=== PATIENT | male | born 1960 | race Caucasian/White ===

== ENCOUNTER 2019-07-17 03:46 | Observation (INO) ==
--- NOTE | 2019-07-17 04:04 | ERNOTE ---
Abdominal HPI - General Chief Complaint: Abdominal Pain Time Seen by Provider: 07/17/19 03:51 Source: patient Exam Limitations: no limitations - Immun/Allergies/Home Medications Immunizatons: IMMUNIZATION HX Immunizations Up to Date Yes History of Influenza Vaccine Yes Hx Pneumococcal Vaccination No Allergies/Adverse Reactions: Allergies rosiglitazone maleate [From Avandia] Allergy (Severe, Verified 07/17/19 03:55) EDEMA/PAIN fluvoxamine maleate [From Luvox] Adverse Reaction (Mild, Verified 07/17/19 03:55) sleepiness Home Medications: HOME MEDICATIONS Budesonide/Formoterol Fumarate [Symbicort 80-4.5 Mcg Inhaler] 2 puff IH BID 05/26/14 [Last Taken 06/11/14] Ranitidine HCl [Zantac] 150 mg PO BID 05/26/14 [Last Taken 06/11/14] metFORMIN HCL [Glucophage] 1,000 mg PO BIDWM 05/26/14 [Last Taken 06/11/14] blood sugar diagnostic See Dose Instructions .ROUTE .MEDSUPPLY #20 ea 12/11/17 [Last Taken Unknown] albuterol sulfate 90 mcg/actuation aerosol inhaler 1 puff IH Q4H PRN g 12/12/17 [Last Taken Unknown] gabapentin 600 mg tablet 600 mg PO TID #90 tab 01/22/18 [Last Taken Unknown] lamotrigine 150 mg tablet 150 mg PO DAILY #90 tab 01/22/18 [Last Taken Unknown] propranolol 20 mg tablet 20 mg PO Q8H PRN #90 tab 01/22/18 [Last Taken Unknown] simvastatin 40 mg tablet 40 mg PO DAILY #90 tab 01/22/18 [Last Taken Unknown] ibuprofen 600 mg tablet 600 mg PO Q8H PRN #90 tab 06/27/18 [Last Taken Unknown] Losartan Potassium [Cozaar] 50 mg PO BID 12/31/18 [Last Taken Unknown] - History of Present Illness Narrative: EMS went out to a lift assist with apparently no injuries. Upon arrival patient stated he was weak and having abdominal pain and was brought to the ED. Patient states he has been having increasing abdominal pain especially when he tries to eat over the past few days. He states mostly he is been sipping on water and has had dark stools. He has history of gastric ulcer. Timing: getting worse Quality: moderate, sharpness Modifying Factors - (Worsens): Present: eating Associated Symptoms: Present: fatigue Review of Systems - Review of Systems Constitutional: Present: weakness, fatigue. Absent: recent illness, fever, chills ENT: Absent: nose congestion, nasal drainage Respiratory: Absent: shortness of breath, cough Cardiology: Present: palpitations. Absent: chest pain Gastrointestinal/Abdominal: Present: See HPI, abdominal pain, eating less, drinking less. Absent: vomiting Genitourinary: Present: frequency, decreased urinary output Musculoskeletal: Absent: back pain, muscle pain Skin: Absent: rash, change in color Neurological: Present: dizziness/light-headedness. 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 Measles Mumps Surgical History: Surgical History (Last Reviewed 07/17/19 @ 04:00 by Clement Felix DO) H/O cardiac catheterization Onset Date: ~2011 H/O inguinal hernia repair bilateral H/O vasectomy Onset Date: 11/21/04 aher History of arthroscopic knee surgery Onset Date: 01/15/12 Nicko-chondroplasty of MFC and LTP exc of plica History of excision of pilonidal cyst Onset Date: 06/12/14 Family History: Family History (Last Reviewed 07/17/19 @ 04:00 by Clement Felix DO) Brother Alive and well Sister Alive and well Sister Rheumatoid arthritis Father , age 73-[place] Myocardial infarction Mother , age 63-[place] Diabetes Brother , age 55 Cancer Social History: (Last Reviewed 07/17/19 @ 04:00 by Clement Felix DO) Social History: Marital status: household members: spouse current occupational status: disabled Highest education level completed: GED or equivalent Service: No Tobacco: Smoking Status: Current some day smoker Smoking cigarettes per day: 5 how long ago did patient quit smoking: quit at age 51. 2 ppd Alcohol: alcohol intake: former Substance Use: substance use type: does not use Dietary Habits: caffeine: Yes Physical Exam - Physical Exam General Appearance: Present: wd/wn, alert, no apparent distress Head Exam: Present: normal inspection, no evidence of injury Eye Exam: Normal inspection: bilateral, PERRL: bilateral, EOMI: bilateral Neck: Present: normal inspection, nontender Respiratory: Present: no respiratory distress, no accessory muscle use, chest nontender, lungs clear Cardiovascular/Chest: Present: regular rate, rhythm, no murmur Gastrointestinal/Abdominal: Present: normal bowel sounds, nondistended, soft, tenderness - periumbilical and left abdomen Extremity Exam: Present: normal inspection, normal range of motion, no edema Neurological Exam: Present: alert, oriented, normal mood/affect, no motor/sensory deficits Skin Exam: Present: normal color, warm/dry Lymphatic Exam: Present: no adenopathy Progress - Results and Orders Patient's Lab Results:: I have reviewed the patient's lab results. Results and Orders: Laboratory Tests 07/17/19 07/17/19 07/17/19 04:15 04:15 04:15 WBC 9.2 Hgb 3.6 L* D Hct 11.1 L* D Plt Count 293 Sodium 139 Potassium 3.5 Chloride 102 Carbon Dioxide 31.1 Anion Gap 9.4 BUN 93 H D Creatinine 3.06 H D Random Glucose 124 H Lactic Acid, Venous 0.6 Calcium Adj for Albumin 12.6 H Phosphorus Total Bilirubin 0.4 AST 13 ALT 10 L Alkaline Phosphatase 44 L Total Protein 5.9 L Albumin 2.6 L Amylase 55 Lipase 181 Urine Color Urine Appearance Urine pH Ur Specific [place] Urine Ketones Urine Blood Urine Nitrate Ur Leukocyte Esterase Urine Bacteria 07/17/19 07/17/19 04:15 04:45 WBC Hgb Hct Plt Count Sodium Potassium Chloride Carbon Dioxide Anion Gap BUN Creatinine Random Glucose Lactic Acid, Venous Calcium Adj for Albumin Phosphorus 3.3 Total Bilirubin AST ALT Alkaline Phosphatase Total Protein Albumin Amylase Lipase Urine Color Pale yellow Urine Appearance Clear Urine pH 6.0 Ur Specific [place] 1.010 Urine Ketones Negative Urine Blood 5 H Urine Nitrate Negative Ur Leukocyte Esterase Negative Urine Bacteria Trace - Vital Signs Patient's Vital Signs:: I have reviewed the patient's vital signs. Vital Signs: Vital Signs 07/17/19 03:52 Temperature 36.4 C Pulse Rate 99 Respiratory Rate 19 Blood Pressure 152/81 H O2 Sat by Pulse Oximetry 99 - EKG EKG #1 EKG: atrial fibrillation, no ST T wave changes EKG read: Interp. by me - X-Ray X-Ray #1 X-Ray: abdomen Interpretation: Reviewed by me X-ray Comments: MPRESSION: NO FECAL RETENTION WITHOUT EVIDENCE FOR OBSTRUCTION. Electronically signed by Rigoberto Juarez D.O - CT/Ultrasound CT/Ultrasound Narrative: CT abdomen/ pelvis with oral contrast only IMPRESSION: 1. NO NEPHROLITHIASIS OR HYDRONEPHROSIS. 2. NO EVIDENCE FOR OBSTRUCTION. NORMAL SMALL BOWEL AND COLON. 3. REMAINDER OF EXAM IS SUBOPTIMAL WITHOUT IV CONTRAST. Electronically signed by Rigoberto Juarez D.O.. - Progress/Reassessment Progress:: Improved Progress Note-Subjective: 07/17/19 05:27 I asked patient about calcium intake such as Tums etc. he said he does take them once in a while. I asked him about milk intake and he states "I have been just living on it for a while". 07/17/19 07:[address] Kaminski and she agrees with admission and continued blood transfusion. Departure Clinical Impression: GI bleed, Anemia due to gastrointestinal blood loss, Hypercalcemia Atrial fibrillation Qualifiers: Atrial fibrillation type: unspecified Qualified Code(s): I48.91 - Unspecified atrial fibrillation - Departure Disposition: Still a patient Condition: Stable Referrals: Jitendra Mcpherson MD [Primary Care Provider] -
[2019-07-17 04:18] LABS: Mean Cell Volume 84.1 fl (78-100); Mean Corpuscular Hemoglobin 27.3 pg (27-31); Mean Corpuscular Hgb Conc 32.4 g/dl (32-36); Mean Platelet Volume 8.2 fl (8-11.3); Neutrophil % 87.2 % (42-75.0); Platelet Count 293 K/mm3 (150-450); Red Blood Count 1.32 M/mm3 (4.7-6.0); Red Cell Distribution Width 17.1 % (11.5-14.0); White Blood Count 9.2 K/mm3 (4.0-10.5)
[2019-07-17] MEDS ORDERED: diphenhydrAMINE HCL 50 MG/ML VIAL IV ONE ×2 (04:25→06:04)
[2019-07-17] MEDS ORDERED: ACETAMINOPHEN 500 MG TABLET PO ONE ×2 (04:25→06:04)
[2019-07-17 04:32] LABS: Albumin * 2.6 gm/dl (3.4-5.0); Anion Gap 9.4 mmol/L (6.8-13.8); BUN/Creatinine Ratio 30.4 (9.0-21.6); Bilirubin, Total 0.4 mg/dL (0.0-1.1); Ca. Corrected For Albumin 12.6 mg/dL (8.4-10.2); Calcium * 11.8 mg/dL (7.9-10.9); Carbon Dioxide 31.1 mmol/L (24-32.6); Potassium 3.5 mmol/L (3.4-4.6); Total Protein 5.9 gm/dL (6.2-8.2)
[2019-07-17 04:34] LABS: Hematocrit 11.1 % (42.0-52.0); Hemoglobin 3.6 gm/dL (13.5-18.0)
[2019-07-17] MEDS ORDERED: DIATRIZOATE MEGLUMINE, SODIUM 30 ML BTL PO ONE ×2 (04:46→04:58)
[2019-07-17 04:50] LABS: Urine Bilirubin Negative (NEGATIVE); Urine Ketone Negative (NEGATIVE); Urine Nitrite Negative (NEGATIVE); Urine Protein Negative (NEGATIVE); Urine Urobilinogen Normal (NORMAL)
[2019-07-17 04:58] LABS: Urine Appearance Clear (CLEAR); Urine Bacteria TRACE; Urine Blood 5 /ul (NEGATIVE); Urine Color Pale Yellow; Urine Hyaline Cast 0-5 /LPF; Urine RBC None Seen /hpf (0-5); Urine WBC 0-5 /hpf (0-5)
[2019-07-17] MEDS ORDERED: ONDANSETRON HCL/PF 2 MG/ML VIAL IV ONE (05:05)
[2019-07-17] MEDS ORDERED: ONDANSETRON HCL/PF 2 MG/ML VIAL ONE (05:05)
[2019-07-17] MEDS ORDERED: PANTOPRAZOLE SODIUM 80 MG in NORMAL SALINE 100 ML IV ONE (08:05)
--- NOTE | 2019-07-17 10:55 | HP ---
Chief Complaint - Chief Complaint Date of Service: 07/17/19 Time of Service: 10:07 Chief Complaint: Weakness for several months, progressively worsening History of Present Illness: 59-year-old male with a past medical history of hypertension, diabetes, COPD, depression, bipolar affective disorder, history of upper GI bleed presents from home with complaints of weakness for the past several weeks. He states his symptoms have been progressively worsening. In February 2019 he developed an upper GI ulcer, his hemoglobin dropped to 5.4 and he was admitted to [facility]. He states he had an endoscopy and Dr. Meadows fixed the problem. He states within the past 1 to 2 months he was found to have another ulcer that was not fixed. He was scheduled to have another endoscopy in June but it was postponed due to the coronavirus pandemic. He notes black sticky stools for the past several weeks. Last night he fell and had difficulty getting himself up due to weakness and therefore called EMS. He was brought to the emergency room and was found to have a hemoglobin of 3.6, hematocrit 11.1, BUN 93, creatinine 3.06, GFR of 22, CT abdomen pelvis without IV contrast was suboptimal but showed no nephrolithiasis or hydronephrosis, no evidence for obstruction, normal small bowel and colon. He is being admitted for GI bleed, symptomatic anemia and acute kidney injury. 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 Measles Mumps Surgical History: Surgical History (Last Updated 07/17/19 @ 08:59 by Debora Curran RN) History of esophagogastroduodenoscopy (EGD) H/O cardiac catheterization Onset Date: ~2011 H/O inguinal hernia repair bilateral H/O vasectomy Onset Date: 11/21/04 aher History of arthroscopic knee surgery Onset Date: 01/15/12 Nicko-chondroplasty of MFC and LTP exc of plica History of excision of pilonidal cyst Onset Date: 06/12/14 Family History: Family History (Last Reviewed 07/17/19 @ 08:59 by Debora Curran RN) Brother Alive and well Sister Alive and well Sister Rheumatoid arthritis Father , age 73-[place] Myocardial infarction Mother , age 63-[place] Diabetes Brother , age 55 Cancer Social History: (Last Updated 07/17/19 @ 09:01 by Debora Curran RN) Social History: Marital status: Marital status comment: single, left him lives independently: Yes household members: none current occupational status: employed, disabled Highest education level completed: GED or equivalent Service: No Tobacco: Smoking Status: Current some day smoker Smoking cigarettes per day: 5 how long ago did patient quit smoking: quit at age 51. 2 ppd Alcohol: alcohol intake: former Substance Use: substance use type: does not use Dietary Habits: caffeine: Yes Review Of Systems (GEN) - Review of Systems Generalized/Overall Review: Present: Weakness. Absent: Fever Respiratory: Absent: Shortness of Breath Cardiac: Absent: Chest Pain Abdominal: Present: Abdominal Pain - Epigastric, Other - Black sticky stools Misc: All systems neg except as marked Immunizations: IMMUNIZATION HX Immunizations Up to Date Yes History of Influenza Vaccine Yes Hx Pneumococcal Vaccination No Allergies/Adverse Reactions: Allergies Allergy/AdvReac Type Severity Reaction Status Date / Time rosiglitazone maleate Allergy Severe EDEMA/PAIN Verified 07/17/19 03:55 [From Avandia] fluvoxamine maleate AdvReac Mild sleepiness Verified 07/17/19 03:55 [From Luvox] Home Medications: HOME MEDICATIONS Budesonide/Formoterol Fumarate [Symbicort 80-4.5 Mcg Inhaler] 2 puff IH BID 05/26/14 [Last Taken 06/11/14] Ranitidine HCl [Zantac] 150 mg PO BID 05/26/14 [Last Taken 06/11/14] metFORMIN HCL [Glucophage] 1,000 mg PO BIDWM 05/26/14 [Last Taken 06/11/14] blood sugar diagnostic See Dose Instructions .ROUTE .MEDSUPPLY #20 ea 12/11/17 [Last Taken Unknown] albuterol sulfate 90 mcg/actuation aerosol inhaler 1 puff IH Q4H PRN g 12/12/17 [Last Taken Unknown] gabapentin 600 mg tablet 600 mg PO TID #90 tab 01/22/18 [Last Taken Unknown] lamotrigine 150 mg tablet 150 mg PO DAILY #90 tab 01/22/18 [Last Taken Unknown] propranolol 20 mg tablet 20 mg PO Q8H PRN #90 tab 01/22/18 [Last Taken Unknown] simvastatin 40 mg tablet 40 mg PO DAILY #90 tab 01/22/18 [Last Taken Unknown] ibuprofen 600 mg tablet 600 mg PO Q8H PRN #90 tab 06/27/18 [Last Taken Unknown] Losartan Potassium [Cozaar] 50 mg PO BID 12/31/18 [Last Taken Unknown] Exam - Exam Vital Signs: Vital Signs - Last Taken Temp 36.8 C 07/17/19 09:41 Pulse 91 07/17/19 09:41 Resp 16 07/17/19 09:41 BP 145/82 H 07/17/19 09:41 Pulse Ox 99 07/17/19 09:41 Constitutional: Present: Alert, Cooperative, Well developed, Well nourished, No distress, Middle aged ENT Exam: Present: hearing grossly normal Eye Exam: bilateral eye: normal inspection, PERRL, EOMI, conjunctivae pale Neck: Present: non-tender, supple. Absent: lymphadenopathy (R), lymphadenopathy (L) Back Exam: Present: normal inspection, no CVA tenderness, no vertebral tenderness Respiratory: Present: lungs clear, no accessory muscle use, No wheezing. Absent: crackles, rhonchi Cardiovascular/Chest: Present: normal peripheral pulses, regular rate, rhythm, no edema, no murmur Peripheral Pulses: dorsalis-pedis (R): 1+, dorsalis-pedis (L): 1+ Abdomen: Present: Normal bowel sounds, soft, tender - Epigastric Extremity: Present: no pedal edema Skin Exam: Present: warm/dry, pallor Neurologic: Present: alert, normal mood/affect Appearance: Present: appropriate appearance, appropriate insight Eye contact: Present: cooperative Thoughts: Present: normal mood /affect Diagnostic Studies: Abnormal Lab Results 07/17/19 07/17/19 07/17/19 Range/Units 04:15 04:15 04:15 RBC 1.32 L (4.7-6.0) M/mm3 Hgb 3.6 L* D (13.5-18.0) gm/dL Hct 11.1 L* D (42.0-52.0) % RDW 17.1 H (11.5-14.0) % Immature Gran % (Auto) 0.50 H (0.001-0.429) % Immature Gran # (Auto) 0.05 H (0.000-0.0310) K/mm3 Neutrophils % 87.2 H (42-75.0) % Lymphocytes % 8.8 L (20-51) % Neutrophils # 8.0 H (1.3-6.0) K/mm3 Lymphocytes # 0.81 L (1.5-3.5) k/mm3 BUN 93 H D (6-23) mg/dL Creatinine 3.06 H D (0.4-1.4) mg/dL Est GFR (Non-Af Amer) 22 L D (60-130) mL/min BUN/Creatinine Ratio 30.4 H (9.0-21.6) Random Glucose 124 H (70-110) mg/dL Calcium 11.8 H (7.9-10.9) mg/dL Calcium Adj for Albumin 12.6 H (8.4-10.2) mg/dL ALT 10 L (19-67) U/L Alkaline Phosphatase 44 L (50-170) U/L Total Protein 5.9 L (6.2-8.2) gm/dL Albumin 2.6 L (3.4-5.0) gm/dl Urine Blood (NEGATIVE) /ul Hyaline Casts (NONE) /LPF Crossmatch See Detail 07/17/19 Range/Units 04:45 RBC (4.7-6.0) M/mm3 Hgb (13.5-18.0) gm/dL Hct (42.0-52.0) % RDW (11.5-14.0) % Immature Gran % (Auto) (0.001-0.429) % Immature Gran # (Auto) (0.000-0.0310) K/mm3 Neutrophils % (42-75.0) % Lymphocytes % (20-51) % Neutrophils # (1.3-6.0) K/mm3 Lymphocytes # (1.5-3.5) k/mm3 BUN (6-23) mg/dL Creatinine (0.4-1.4) mg/dL Est GFR (Non-Af Amer) (60-130) mL/min BUN/Creatinine Ratio (9.0-21.6) Random Glucose (70-110) mg/dL Calcium (7.9-10.9) mg/dL Calcium Adj for Albumin (8.4-10.2) mg/dL ALT (19-67) U/L Alkaline Phosphatase (50-170) U/L Total Protein (6.2-8.2) gm/dL Albumin (3.4-5.0) gm/dl Urine Blood 5 H (NEGATIVE) /ul Hyaline Casts 0-5 H (NONE) /LPF Crossmatch Laboratory Results WBC 9.2 K/mm3 (4.0-10.5) 07/17/19 04:15 RBC 1.32 M/mm3 (4.7-6.0) L 07/17/19 04:15 Hgb 3.6 gm/dL (13.5-18.0) L* D 07/17/19 04:15 Hct 11.1 % (42.0-52.0) L* D 07/17/19 04:15 MCV 84.1 fl (78-100) 07/17/19 04:15 MCH 27.3 pg (27-31) 07/17/19 04:15 MCHC 32.4 g/dl (32-36) 07/17/19 04:15 RDW 17.1 % (11.5-14.0) H 07/17/19 04:15 Plt Count 293 K/mm3 (150-450) 07/17/19 04:15 MPV 8.2 fl (8-11.3) 07/17/19 04:15 Immature Gran % (Auto) 0.50 % (0.001-0.429) H 07/17/19 04:15 Immature Gran # (Auto) 0.05 K/mm3 (0.000-0.0310) H 07/17/19 04:15 Neutrophils % 87.2 % (42-75.0) H 07/17/19 04:15 Lymphocytes % 8.8 % (20-51) L 07/17/19 04:15 Monocytes % 3.1 % (0.0-9) 07/17/19 04:15 Eosinophils % 0.2 % (0.0-3.0) 07/17/19 04:15 Basophils % 0.2 % (0.0-1.0) 07/17/19 04:15 Nucleated RBC % 0.0 k/mm3 (0-1) 07/17/19 04:15 Neutrophils # 8.0 K/mm3 (1.3-6.0) H 07/17/19 04:15 Lymphocytes # 0.81 k/mm3 (1.5-3.5) L 07/17/19 04:15 Monocytes # 0.3 k/mm3 (0.0-1.0) 07/17/19 04:15 Eosinophils # 0.0 k/mm3 (0.0-0.7) 07/17/19 04:15 Absolute Basophils 0.0 k/mm3 (0.0-0.1) 07/17/19 04:15 Sodium 139 mmol/L (132-142) 07/17/19 04:15 Plasma Sodium 139 mmol/L (130-142) 07/17/19 04:15 Potassium 3.5 mmol/L (3.4-4.6) 07/17/19 04:15 Chloride 102 mmol/L (97-106) 07/17/19 04:15 Carbon Dioxide 31.1 mmol/L (24-32.6) 07/17/19 04:15 Anion Gap 9.4 mmol/L (6.8-13.8) 07/17/19 04:15 BUN 93 mg/dL (6-23) H D 07/17/19 04:15 Creatinine 3.06 mg/dL (0.4-1.4) H D 07/17/19 04:15 Est GFR (Non-Af Amer) 22 mL/min (60-130) L D 07/17/19 04:15 BUN/Creatinine Ratio 30.4 (9.0-21.6) H 07/17/19 04:15 Random Glucose 124 mg/dL (70-110) H 07/17/19 04:15 Lactic Acid, Venous 0.6 mmol/L (0.4-2.0) 07/17/19 04:15 Calcium 11.8 mg/dL (7.9-10.9) H 07/17/19 04:15 Calcium Adj for Albumin 12.6 mg/dL (8.4-10.2) H 07/17/19 04:15 Phosphorus 3.3 mg/dL (2.2-4.2) 07/17/19 04:15 Total Bilirubin 0.4 mg/dL (0.0-1.1) 07/17/19 04:15 AST 13 U/L (0-48) 07/17/19 04:15 ALT 10 U/L (19-67) L 07/17/19 04:15 Alkaline Phosphatase 44 U/L (50-170) L 07/17/19 04:15 Total Protein 5.9 gm/dL (6.2-8.2) L 07/17/19 04:15 Albumin 2.6 gm/dl (3.4-5.0) L 07/17/19 04:15 Amylase 55 U/L (25-115) 07/17/19 04:15 Lipase 181 U/L (73-393) 07/17/19 04:15 Urine Color Pale yellow 07/17/19 04:45 Urine Appearance Clear (CLEAR) 07/17/19 04:45 Urine pH 6.0 pH (5.0-7.0) 07/17/19 04:45 Ur Specific [place] 1.010 SP.GR. (1.005-1.030) 07/17/19 04:45 Urine Protein Negative mg/dL (NEGATIVE) 07/17/19 04:45 Urine Glucose (UA) Negative mg/dL (NEGATIVE) 07/17/19 04:45 Urine Ketones Negative mg/dL (NEGATIVE) 07/17/19 04:45 Urine Blood 5 /ul (NEGATIVE) H 07/17/19 04:45 Urine Nitrate Negative (NEGATIVE) 07/17/19 04:45 Urine Bilirubin Negative mg/dl (NEGATIVE) 07/17/19 04:45 Urine Urobilinogen Normal EU/dl (NORMAL) 07/17/19 04:45 Ur Leukocyte Esterase Negative /ul (NEGATIVE) 07/17/19 04:45 Urine RBC None seen /hpf (0-5) 07/17/19 04:45 Urine WBC 0-5 /hpf (0-5) 07/17/19 04:45 Ur Epithelial Cells None seen /hpf (0-5) 07/17/19 04:45 Urine Bacteria Trace (NONE) 07/17/19 04:45 Hyaline Casts 0-5 /LPF (NONE) H 07/17/19 04:45 Urine Culture Comments No culture indicated 07/17/19 04:45 Blood Type A Positive 07/17/19 04:15 Antibody Screen Negative 07/17/19 04:15 Crossmatch See Detail 07/17/19 04:15 Assessment/Plan - Narrative Narrative: 59-year-old male with a past medical history of hypertension, diabetes, COPD, depression, bipolar affective disorder, history of upper GI bleed presents from home with complaints of weakness for the past several weeks. He states his symptoms have been progressively worsening. In February 2019 he developed an upper GI ulcer, his hemoglobin dropped to 5.4 and he was admitted to [facility]. He states he had an endoscopy and Dr. Meadows fixed the problem. He states within the past 1 to 2 months he was found to have another ulcer that was not fixed. He was scheduled to have another endoscopy in June but it was postponed due to the coronavirus pandemic. He notes black sticky sto ols for the past several weeks. Last night he fell and had difficulty getting himself up due to weakness and therefore called EMS. He was brought to the emergency room and was found to have a hemoglobin of 3.6, hematocrit 11.1, BUN 93, creatinine 3.06, GFR of 22, CT abdomen pelvis without IV contrast was suboptimal but showed no nephrolithiasis or hydronephrosis, no evidence for obstruction, normal small bowel and colon. He was admitted for GI bleed, symptomatic anemia and acute kidney injury. The patient states he does not want our general surgeons to scope him and would prefer that Dr. Meadows does the procedure because he already has a relationship with the patient. I have put out a consult to Dr. Meadows to determine if he would like the patient transferred to [facility] or just stabilized and have him follow-up as an outpatient. Plan #1 continue with IV Protonix drip #2 he will receive 3 units of packed red blood cells #3 Repeat CBC 1 hour status post transfusion #4. Monitor vitals closely #[address] Lerma general surgery at [facility] - Assessment/Plan (1) Symptomatic anemia Problem: Acute (2) Acute kidney injury Problem: Acute (3) GI bleed Problem: Acute Qualifiers: GI bleed type/associated pathology: unspecified gastrointestinal hemorrhage type Qualified Code(s): K92.2 - Gastrointestinal hemorrhage, unspecified (4) Anemia due to gastrointestinal blood loss Problem: Acute (5) Hypercalcemia Problem: Acute (6) COPD (chronic obstructive pulmonary disease) Problem: Chronic (7) Diabetes mellitus type 2 in nonobese Problem: Chronic (8) Hyperlipidemia Problem: Chronic (9) Hypertension Problem: Chronic Qualifiers: Hypertension type: essential hypertension Qualified Code(s): I10 - Essential (primary) hypertension
--- NOTE | 2019-07-17 11:50 | DS ---
Transfer Discharge Summary - Diagnosis(s)/Problems (1) Symptomatic anemia Problem: Acute (2) Acute kidney injury Problem: Acute (3) GI bleed Problem: Acute (4) Anemia due to gastrointestinal blood loss Problem: Acute (5) Hypercalcemia Problem: Acute (6) COPD (chronic obstructive pulmonary disease) Problem: Chronic (7) Diabetes mellitus type 2 in nonobese Problem: Chronic (8) Hyperlipidemia Problem: Chronic (9) Hypertension Problem: Chronic - Course Description of Stay: 59-year-old male with a past medical history of hypertension, diabetes, COPD, depression, bipolar affective disorder, history of upper GI bleed presents from home with complaints of weakness for the past several weeks. He states his symptoms have been progressively worsening. In February 2019 he developed an upper GI ulcer, his hemoglobin dropped to 5.4 and he was admitted to [facility]. He states he had an endoscopy and Dr. Meadows fixed the problem. He states within the past 1 to 2 months he was found to have another ulcer that was not fixed. He was scheduled to have another endoscopy in June but it was postponed due to the coronavirus pandemic. He notes black sticky stools for the past several weeks. Last night he fell and had difficulty getting himself up due to weakness and therefore called EMS. He was brought to the emergency room and was found to have a hemoglobin of 3.6, hematocrit 11.1, BUN 93, creatinine 3.06, GFR of 22, CT abdomen pelvis without IV contrast was suboptimal but showed no nephrolithiasis or hydronephrosis, no evidence for obstruction, normal small bowel and colon. He was admitted for GI bleed, symptomatic anemia and acute kidney injury. The patient states he does not want our general surgeons to scope him and would prefer that Dr. Meadows does the procedure because he already has a relationship with the patient. I have put out a consult to Dr. Meadows to determine if he would like the patient transferred to [facility] or just stabilized and have him follow-up as an outpatient. The patient has received 1 unit of blood and is currently getting his second unit of blood. Repeat CBC has not been performed yet. Dr. Kermit Lerma general surgeon at [facility] is formation testing operator today. Per consultation with him he would like the patient transferred to the ICU at [facility] on a Protonix drip. Patient is in agreement and is stable for transfer. Dr. Kermit Lerma general surgeon is the accepting physician. Procedures Performed: none - Results and Findings Results and Findings: Laboratory Results - last 24 hr 07/17/19 07/17/19 07/17/19 04:15 04:15 04:15 WBC 9.2 RBC 1.32 L Hgb 3.6 L* D Hct 11.1 L* D MCV 84.1 MCH 27.3 MCHC 32.4 RDW 17.1 H Plt Count 293 MPV 8.2 Immature Gran % (Auto) 0.50 H Immature Gran # (Auto) 0.05 H Neutrophils % 87.2 H Lymphocytes % 8.8 L Monocytes % 3.1 Eosinophils % 0.2 Basophils % 0.2 Nucleated RBC % 0.0 Neutrophils # 8.0 H Lymphocytes # 0.81 L Monocytes # 0.3 Eosinophils # 0.0 Absolute Basophils 0.0 Sodium 139 Plasma Sodium 139 Potassium 3.5 Chloride 102 Carbon Dioxide 31.1 Anion Gap 9.4 BUN 93 H D Creatinine 3.06 H D Est GFR (Non-Af Amer) 22 L D BUN/Creatinine Ratio 30.4 H Random Glucose 124 H Lactic Acid, Venous 0.6 Calcium 11.8 H Calcium Adj for Albumin 12.6 H Phosphorus Total Bilirubin 0.4 AST 13 ALT 10 L Alkaline Phosphatase 44 L Total Protein 5.9 L Albumin 2.6 L Amylase 55 Lipase 181 Urine Color Urine Appearance Urine pH Ur Specific [place] Urine Protein Urine Glucose (UA) Urine Ketones Urine Blood Urine Nitrate Urine Bilirubin Urine Urobilinogen Ur Leukocyte Esterase Urine RBC Urine WBC Ur Epithelial Cells Urine Bacteria Hyaline Casts Urine Culture Comments Blood Type Antibody Screen Crossmatch 07/17/19 07/17/19 07/17/19 04:15 04:15 04:45 WBC RBC Hgb Hct MCV MCH MCHC RDW Plt Count MPV Immature Gran % (Auto) Immature Gran # (Auto) Neutrophils % Lymphocytes % Monocytes % Eosinophils % Basophils % Nucleated RBC % Neutrophils # Lymphocytes # Monocytes # Eosinophils # Absolute Basophils Sodium Plasma Sodium Potassium Chloride Carbon Dioxide Anion Gap BUN Creatinine Est GFR (Non-Af Amer) BUN/Creatinine Ratio Random Glucose Lactic Acid, Venous Calcium Calcium Adj for Albumin Phosphorus 3.3 Total Bilirubin AST ALT Alkaline Phosphatase Total Protein Albumin Amylase Lipase Urine Color Pale yellow Urine Appearance Clear Urine pH 6.0 Ur Specific [place] 1.010 Urine Protein Negative Urine Glucose (UA) Negative Urine Ketones Negative Urine Blood 5 H Urine Nitrate Negative Urine Bilirubin Negative Urine Urobilinogen Normal Ur Leukocyte Esterase Negative Urine RBC None seen Urine WBC 0-5 Ur Epithelial Cells None seen Urine Bacteria Trace Hyaline Casts 0-5 H Urine Culture Comments No culture indicated Blood Type A Positive Antibody Screen Negative Crossmatch See Detail - Medications Medications: Active Medications Discontinued Medications Acetaminophen (Tylenol) 1,000 mg PO ONCE ONE Stop: 07/17/19 06:05 Last Admin: 07/17/19 06:09 Dose: 1,000 mg Documented by: Diatrizoate Meglum/Diatrizoate Sod (Gastrografin Solution) 60 ml PO ONCE ONE Stop: 07/17/19 04:47 Last Admin: 07/17/19 05:09 Dose: 60 ml Documented by: Diatrizoate Meglum/Diatrizoate Sod (Gastrografin Solution) 60 ml PO ONCE ONE Stop: 07/17/19 04:59 Last Admin: 07/17/19 05:09 Dose: Not Given Documented by: Diphenhydramine HCl (Benadryl) 25 mg IV ONCE ONE Stop: 07/17/19 04:26 Last Admin: 07/17/19 06:34 Dose: Not Given Documented by: Diphenhydramine HCl (Benadryl) 25 mg IV ONCE ONE Stop: 07/17/19 06:05 Last Admin: 07/17/19 06:10 Dose: 25 mg Documented by: Pantoprazole Sodium 80 mg/ (Sodium Chloride) 100 mls @ 400 mls/hr IV ONCE ONE Stop: 07/17/19 08:19 Last Infusion: 07/17/19 09:03 Dose: Infused Documented by: Ondansetron HCl (Zofran) 4 mg IV ONCE ONE Stop: 07/17/19 05:06 Last Admin: 07/17/19 05:08 Dose: 4 mg Documented by: - Disposition Disposition: Short Term Hospital Inpatient Condition: Stable
[2019-07-17] MEDS: PANTOPRAZOLE SODIUM 40 MG in NORMAL SALINE 100 ML IV SCH ×4 (12:18→22:25)
[2019-07-17] MEDS: NORMAL SALINE 1,000 ML IV PRN (15:06)
--- NOTE | 2019-07-17 15:27 | CONS ---
[facility] - General Date of Service: 07/17/19 Source: patient, RN/, RN notes reviewed, old records Exam Limitations: no limitations - History of Present Illness Initial Comments: He is a somewhat wandering historian. He starts his history by describing how his left him. He then had a lot of stress over unpaid bills and started to have pain in his stomach. He presented to our emergency room in October 2018 with a perforated gastric ulcer. He was transferred to [facility] where he underwent exploratory laparotomy with oversewing of the perforation performed by Dr. Lerma. His hemoglobin was 7.4 at that time. He had a subsequent EGD by Dr. Lerma in December. That report describes a very large chronic appearing gastric ulcer. Apparently no biopsies were performed at that procedure. He continued to have stomach discomfort. He had an additional EGD performed in [address] Lerma. That report is not available but alluded to in a later note by Dr. Meadows. Dr. Meadows's note states that a gastric ulcer was present however no biopsies were performed. The patient continued with anemia for which she was given iron by Dr. Mcpherson. He states his bowels became darker. He cannot say exactly when this was. Apparently recently his bowels have gotten darker and he says "sometimes I see some blood in the bowel as well". He saw Dr. Meadows again in May for a large recurrent left inguinal hernia. The note from that visit states that the hernia will be repaired and the patient will also have an EGD and colonoscopy. An operative report from the hernia repair is available, however apparently the EGD and colonoscopy were never performed. A hemoglobin from May was 6.4. Currently he he apparently has pain every time he eats. He takes Tums and is on ranitidine. States the stomach medication causes pain "all the way through me". He has also been on chronic Percocet for chronic pain. He also takes [id number] ibuprofen on a daily basis--he cannot quantify the amount. Apparently over the last several weeks he has become very weak, and his visit to the ER was prompted by a fall at home when he could not get up and called EMS. Hemoglobin in the emergency room was 3.6. His calcium is elevated at 11.8. Timing/Duration: other - Chronic problem. Apparently having more trouble for a couple of months by his history Modifying Factors - (Worsens): Reports: eating Modifying Factors - (Improves): Reports: medication Associated Symptoms: other - He has burning pain in his stomach. He has to take milk of magnesia to get his bowels to move (states he has had lifelong constipation). He is having black bowel movements. Allergies/Adverse Reactions: Allergies rosiglitazone maleate [From Avandia] Allergy (Severe, Verified 07/17/19 16:43) EDEMA/PAIN fluvoxamine maleate [From Luvox] Adverse Reaction (Mild, Verified 07/17/19 16: 43) sleepiness Home Medications: Home Medications Medication Instructions Recorded Last Taken Budesonide/Formoterol Fumarate 2 puff IH BID 05/26/14 06/11/14 [Symbicort 80-4.5 Mcg Inhaler] metFORMIN HCL [Glucophage] 1,000 mg PO BIDWM 05/26/14 06/11/14 albuterol sulfate 90 mcg/actuation 1 puff IH Q4H PRN g 12/12/17 Unknown aerosol inhaler lamotrigine 150 mg tablet 150 mg PO DAILY #90 tab 01/22/18 Unknown Losartan Potassium [Cozaar] 50 mg PO DAILY 12/31/18 Unknown Atorvastatin Calcium 10 mg PO DAILY 07/17/19 Unknown Ferrous Sulfate 325 mg PO TID 07/17/19 Unknown Gabapentin 800 mg PO TID 07/17/19 Unknown Glucagon HCl [Glucagon Emergency 1 mg IJ ONCE PRN 07/17/19 Unknown Kit] Hydrochlorothiazide [Hydrodiuril] 25 mg PO DAILY 07/17/19 Unknown Ibuprofen [Motrin] 600 mg PO TID PRN 07/17/19 Unknown Pantoprazole Sodium [Protonix] 40 mg PO BID 07/17/19 Unknown Polyethylene Glycol 3350 [Miralax] 17 gm PO DAILY 07/17/19 Unknown Propranolol HCl [Inderal] 20 mg PO BID PRN 07/17/19 Unknown Sucralfate [Carafate] 1 gm PO QID 07/17/19 Unknown Procedures Excision of pilonidal cyst or sinus (06/12/14) Other repair of knee (01/15/12) Synovectomy, knee (01/15/12) Vasectomy (11/21/04) Medications - Medications Current Medications: Current Medications Pantoprazole Sodium 40 mg/ (Sodium Chloride) 100 mls @ 20 mls/hr IV Q5H SONYA Stop: 07/18/19 09:14 Last Admin: 07/17/19 12:36 Dose: Not Given Documented by: Sodium Chloride (Sodium Chloride 0.9%) 1,000 mls @ 75 mls/hr IV .[id number] PRN PRN Reason: HYDRATION Stop: 08/16/19 11:04 Last Admin: 07/17/19 15:06 Dose: 75 mls/hr Documented by: Review of Systems - Review of Systems Generalized/Overall Review: Present: Weakness, Weight loss. Absent: Chills, Fever EENTM: Present: No Symptoms Reported Respiratory: Present: Cough - Chronic, Other - He apparently gets short of breath with activity Cardiac: Present: Other - When he fell it was not due to syncope, just weakness. Absent: Chest Pain, Palpitations Abdominal: Present: Abdominal Pain, Constipation, Other - Black bowel movements Genitourinary: Present: No Symptoms Reported Musculoskeletal: Present: Other - Chronic pain Neurological: Present: No Symptoms Reported Skin: Present: No Symptoms Reported Endocrine: Present: No Symptoms Reported Physical Examination - Exam Vital Signs: Vital Signs - Last Taken Temp 36.7 C 07/17/19 14:58 Pulse 92 07/17/19 14:58 Resp 16 07/17/19 14:58 BP 146/80 H 07/17/19 14:58 Pulse Ox 100 07/17/19 14:58 O2 Oxygen Delivery Method Room Air Constitutional: Present: Alert, Oriented x3, Cooperative, Well developed, Thin and frail ENT Exam: Present: normal ENT inspection Eye Exam: bilateral eye: normal inspection Neck: Present: full range of motion, normal inspection Breasts: Present: Exam deferred Respiratory: Present: no respiratory distress Cardiovascular/Chest: Present: regular rate, rhythm Abdomen: Present: other - Denies tenderness currently /Rectal: Present: Exam deferred Extremity: Present: normal range of motion Skin Exam: Present: pallor Neurologic: Present: plate glass installer II-XII nml as tested, normal cerebellar test, no motor/sensory deficits Appearance: Present: disheveled, other - Garrulous Eye contact: Present: cooperative, good eye contact, normal speech Thoughts: Present: other - Somewhat wandering historian - Results and Findings: Lab/Microbiology results last 24 hrs: Abnormal/Pending Laboratory Last 24 HRS 07/17/19 07/17/19 07/17/19 04:45 04:15 04:15 RBC Hgb Hct RDW Immature Gran % (Auto) Immature Gran # (Auto) Neutrophils % Lymphocytes % Neutrophils # Lymphocytes # BUN 93 H D Creatinine 3.06 H D Est GFR (Non-Af Amer) 22 L D BUN/Creatinine Ratio 30.4 H Random Glucose 124 H Calcium 11.8 H Calcium Adj for Albumin 12.6 H ALT 10 L Alkaline Phosphatase 44 L Total Protein 5.9 L Albumin 2.6 L Urine Blood 5 H Hyaline Casts 0-5 H Crossmatch See Detail 07/17/19 04:15 RBC 1.32 L Hgb 3.6 L* D Hct 11.1 L* D RDW 17.1 H Immature Gran % (Auto) 0.50 H Immature Gran # (Auto) 0.05 H Neutrophils % 87.2 H Lymphocytes % 8.8 L Neutrophils # 8.0 H Lymphocytes # 0.81 L BUN Creatinine Est GFR (Non-Af Amer) BUN/Creatinine Ratio Random Glucose Calcium Calcium Adj for Albumin ALT Alkaline Phosphatase Total Protein Albumin Urine Blood Hyaline Casts Crossmatch - Assessments/Findings (1) Anemia due to gastrointestinal blood loss Diagnosis(s): He had a perforated gastric ulcer in October 2018. This was repaired. He had a subsequent EGD in December which demonstrated persistence of the ulcer. A follow-up EGD in February was done. The report is not currently available however a subsequent note alludes to persistence of the gastric ulcer. Apparently no biopsies were done at that time (?). A request has been made for those specific records. Apparently his hemoglobin has ranged between 7.4 and 6.4 from October until May of this year until the recent value of 3.6. He is currently hemodynamically stable. He has been on ranitidine but not apparently a proton pump inhibitor or Carafate. He also apparently takes [id number] ibuprofen on a daily basis. Ideally he should have a repeat EGD with biopsies of the gastric ulcer to rule out malignancy and also repeat H. pylori studies. With current Kovic concerns, any endoscopy would require a formal general endotracheal anesthetic, so an EGD would be deferred at this time unless he became hemodynamically unstable and there was reason to believe a therapeutic intervention was necessary. Would recommend transfusion to a safe level. He should avoid any NSAID S at all cost. Would recommend twice daily Protonix and Carafate. EGD could be scheduled as an outpatient when Covid concerns have lessened and MAC anesthesia could be utilized. Will await additional records from [place], and continue to follow patient. Case was discussed with Dr. Herzog and Case Management Problem: Chronic (2) GI bleed Problem: Chronic Qualifiers: GI bleed type/associated pathology: gastric ulcer Qualified Code(s): K25.4 - Chronic or unspecified gastric ulcer with hemorrhage
[2019-07-17 16:36] LABS: Hematocrit 20.9 % (42.0-52.0); Hemoglobin 7.3 gm/dL (13.5-18.0)
[2019-07-17] MEDS ORDERED: ALBUTEROL SULFATE 200 PUFF INHALER IH PRN (16:43)
[2019-07-17] MEDS ORDERED: PROPRANOLOL HCL 20 MG TABLET PO PRN (16:43)
[2019-07-17] MEDS: SUCRALFATE 1 G TABLET PO SCH ×2 (17:12→20:29)
[2019-07-17] MEDS: FERROUS SULFATE 325 MG TABLET PO SCH (17:12)
[2019-07-17] MEDS: FLUTICASONE PROPION/SALMETEROL 14 PUFF DISK.W.DEV IH SCH (20:30)
[2019-07-17] MEDS ORDERED: ACETAMINOPHEN 325 MG TABLET PO PRN (23:49)
[2019-07-18] MEDS: PANTOPRAZOLE SODIUM 40 MG in NORMAL SALINE 100 ML IV SCH ×2 (03:36→08:56)
[2019-07-18] MEDS: NORMAL SALINE 1,000 ML IV PRN (05:02)
[2019-07-18 06:14] LABS: Mean Cell Volume 83.6 fl (78-100); Mean Corpuscular Hemoglobin 29.1 pg (27-31); Mean Corpuscular Hgb Conc 34.8 g/dl (32-36); Mean Platelet Volume 8.6 fl (8-11.3); Neutrophil # 5.3 K/mm3 (1.3-6.0); Neutrophil % 74.5 % (42-75.0); Platelet Count 224 K/mm3 (150-450); Red Blood Count 2.68 M/mm3 (4.7-6.0); Red Cell Distribution Width 15.5 % (11.5-14.0)
[2019-07-18 06:30] LABS: Albumin * 2.1 gm/dl (3.4-5.0); Anion Gap 9.4 mmol/L (6.8-13.8); BUN/Creatinine Ratio 26.7 (9.0-21.6); Bilirubin, Total 0.5 mg/dL (0.0-1.1); Calcium * 8.8 mg/dL (7.9-10.9); Potassium 3.4 mmol/L (3.4-4.6); Total Protein 4.9 gm/dL (6.2-8.2)
[2019-07-18 06:31] LABS: Hemoglobin 7.8 gm/dL (13.5-18.0)
[2019-07-18 06:32] LABS: Hematocrit 22.4 % (42.0-52.0)
[2019-07-18] MEDS ORDERED: PANTOPRAZOLE SODIUM 40 MG TABLET.EC PO SCH (07:00)
[2019-07-18] MEDS: SUCRALFATE 1 G TABLET PO SCH ×2 (07:13→11:01)
[2019-07-18] MEDS ORDERED: ALBUTEROL SULFATE 2.5 MG/0.5 ML VIAL.NEB IH PRN (07:30)
[2019-07-18] MEDS: FLUTICASONE PROPION/SALMETEROL 14 PUFF DISK.W.DEV IH SCH (08:47)
[2019-07-18] MEDS: FERROUS SULFATE 325 MG TABLET PO SCH ×2 (08:47→13:31)
[2019-07-18] MEDS ORDERED: HYDROCHLOROTHIAZIDE 25 MG TABLET PO SCH (09:00)
[2019-07-18] MEDS ORDERED: LOSARTAN POTASSIUM 50 MG TABLET PO SCH (09:00)
[2019-07-18] MEDS ORDERED: lamoTRIgine 100 MG TABLET PO SCH (09:00)
[2019-07-18] MEDS: PANTOPRAZOLE SODIUM 40 MG TABLET.EC PO SCH ×2 (09:43→09:44)
--- NOTE | 2019-07-18 10:17 | PN ---
Dictated Progress Note - Date and Time Seen: Date: 07/18/19 - Progress Note Narrative: Vital Signs - Last Taken Temp 36.5 C 07/18/19 10:01 Pulse 72 07/18/19 10:01 Resp 16 07/18/19 10:01 BP 137/74 07/18/19 10:01 Pulse Ox 99 07/18/19 10:01 Abnormal/Pending Laboratory Last 24 HRS 07/18/19 07/18/19 07/17/19 06:00 06:00 16:22 RBC 2.68 L Hgb 7.8 L* 7.3 L* D Hct 22.4 L* 20.9 L* D RDW 15.5 H Immature Gran % (Auto) 0.60 H Immature Gran # (Auto) 0.04 H Lymphocytes % 14.8 L Lymphocytes # 1.04 L BUN 68 H Creatinine 2.55 H D Est GFR (Non-Af Amer) 28 L D BUN/Creatinine Ratio 26.7 H ALT 6 L Alkaline Phosphatase 29 L Total Protein 4.9 L Albumin 2.1 L Crossmatch 07/17/19 04:15 RBC Hgb Hct RDW Immature Gran % (Auto) Immature Gran # (Auto) Lymphocytes % Lymphocytes # BUN Creatinine Est GFR (Non-Af Amer) BUN/Creatinine Ratio ALT Alkaline Phosphatase Total Protein Albumin Crossmatch See Detail VS have remained normal. Hgb has appropriately risen to 7.8 after transfusion. Recommend twice daily Protonix and Carafate. ABSOLUTELY NO NSAID's. He could follow-up as outpatient for EGD as elective procedure.
[2019-07-18] MEDS ORDERED: traMADol HCL 50 MG TABLET PO PRN (10:54)
--- NOTE | 2019-07-18 10:54 | DS ---
(1) Symptomatic anemia Problem: Acute (2) Acute kidney injury Problem: Acute (3) GI bleed Problem: Chronic Qualifiers: GI bleed type/associated pathology: gastric ulcer Qualified Code(s): K25.4 - Chronic or unspecified gastric ulcer with hemorrhage (4) Anemia due to gastrointestinal blood loss Problem: Acute (5) Hypercalcemia Problem: Acute (6) COPD (chronic obstructive pulmonary disease) Problem: Chronic (7) Diabetes mellitus type 2 in nonobese Problem: Chronic (8) Hyperlipidemia Problem: Chronic (9) Hypertension Problem: Chronic Qualifiers: Hypertension type: essential hypertension Qualified Code(s): I10 - Essential (primary) hypertension Hospital Course: 59-year-old male with a past medical history of hypertension, diabetes, COPD, depression, bipolar affective disorder, history of upper GI bleed presents from home with complaints of weakness for the past several weeks. He states his symptoms have been progressively worsening. In February 2019 he developed an upper GI ulcer, his hemoglobin dropped to 5.4 and he was admitted to [facility]. He states he had an endoscopy and Dr. Meadows fixed the problem. He states within the past 1 to 2 months he was found to have another ulcer that was not fixed. He was scheduled to have another endoscopy in June but it was postponed due to the coronavirus pandemic. He notes black sticky stools for the past several weeks. Last night he fell and had difficulty getting himself up due to weakness and therefore called EMS. He was brought to the emergency room and was found to have a hemoglobin of 3.6, hematocrit 11.1, BUN 93, creatinine 3.06, GFR of 22, CT abdomen pelvis without IV contrast was suboptimal but showed no nephrolithiasis or hydronephrosis, no evidence for obstruction, normal small bowel and colon. He was admitted for GI bleed, symptomatic anemia and acute kidney injury. The patient initially insisted on having Dr. Meadows, general surgeon evaluate him at [facility]. Transfer was arranged but the admitting surgeon was going to be Dr. Lerma because Dr. Meadows was a wait till the end of the month. The patient refused to be transferred unless he was going to be taking care of by Dr. Meadows. Patient remained admitted at [facility] and general surgeon Dr. Bagley and was consulted. Due to the chronic nature of the patient's bleed likely secondary to a large gastric ulcer he did not feel the patient needed to be scoped emergently. He wanted us to continue with supportive management and the patient should follow-up with Dr. Meadows for outpatient endoscopy. The patient's Kidney function improved with IV fluid hydration. Hemoglobin came up to 7.8 status post 4 8 units of blood. The patient continues to have black stool secondary to this gastric ulcer bleed but is feeling much better and stronger. He is tolerating a diet. He should follow-up with his PCP within 1 week of discharge and obtain a BMP and CBC. He will need to follow-up with Dr. Meadows, general surgeon on July 23, 2019. Creatinine improved from 3.06-2.55, GFR improved from 22-28, BUN improved from 93-68. The acute kidney injury was secondary to hypovolemia with the chronic bleed. He will need to increase oral hydration when discharged. The patient has been educated that he can no longer use NSAIDs for pain management because of his GI bleed. He will need to follow-up with his primary care physician regarding alternative medication for pain. Due to his kidney injury, I am going to hold his metformin, losartan, hydrochlorothiazide, gabapentin and ibuprofen until the patient follows up with his primary care physician to determine if and when these medications should be restarted. He will need this continue taking sucralfate 1 g 4 times a day and Protonix 40 mg twice a day. Procedures Performed: none Results and Findings: Lab Pending Results 07/17/19 04:15: WBC 9.2, RBC 1.32 L, Hgb 3.6 L* D, Hct 11.1 L* D, MCV 84.1, MCH 27.3, MCHC 32.4, RDW 17.1 H, Plt Count 293, MPV 8.2, Immature Gran % (Auto) 0.50 H, Immature Gran # (Auto) 0.05 H, Neutrophils % 87.2 H, Lymphocytes % 8.8 L, Monocytes % 3.1, Eosinophils % 0.2, Basophils % 0.2, Nucleated RBC % 0.0, Neutrophils # 8.0 H, Lymphocytes # 0.81 L, Monocytes # 0.3, Eosinophils # 0.0, Absolute Basophils 0.0 07/17/19 04:15: Sodium 139, Plasma Sodium 139, Potassium 3.5, Chloride 102, Carbon Dioxide 31.1, Anion Gap 9.4, BUN 93 H D, Creatinine 3.06 H D, Est GFR (Non-Af Amer) 22 L D, BUN/Creatinine Ratio 30.4 H, Random Glucose 124 H, Calcium 11.8 H, Calcium Adj for Albumin 12.6 H, Total Bilirubin 0.4, AST 13, ALT 10 L, Alkaline Phosphatase 44 L, Total Protein 5.9 L, Albumin 2.6 L, Amylase 55, Lipase 181 07/17/19 04:15: Lactic Acid, Venous 0.6 07/17/19 04:15: Blood Type A Positive, Antibody Screen Negative, Crossmatch See Detail 07/17/19 04:15: Phosphorus 3.3 07/17/19 04:45: Urine Color Pale yellow, Urine Appearance Clear, Urine pH 6.0, Ur Specific [place] 1.010, Urine Protein Negative, Urine Glucose (UA) Negative, Urine Ketones Negative, Urine Blood 5 H, Urine Nitrate Negative, Urine Bilirubin Negative, Urine Urobilinogen Normal, Ur Leukocyte Esterase Negative, Urine RBC None seen, Urine WBC 0-5, Ur Epithelial Cells None seen, Urine Bacteria Trace, Hyaline Casts 0-5 H, Urine Culture Comments No culture indicated 07/17/19 16:22: Hgb 7.3 L* D, Hct 20.9 L* D 07/18/19 06:00: WBC 7.0 D, RBC 2.68 L, Hgb 7.8 L*, Hct 22.4 L*, MCV 83.6, MCH 29.1, MCHC 34.8, RDW 15.5 H, Plt Count 224, MPV 8.6, Immature Gran % (Auto) 0.60 H, Immature Gran # (Auto) 0.04 H, Neutrophils % 74.5, Lymphocytes % 14.8 L, Monocytes % 7.1, Eosinophils % 2.4, Basophils % 0.6, Nucleated RBC % 0.0, Neutrophils # 5.3, Lymphocytes # 1.04 L, Monocytes # 0.5, Eosinophils # 0.2, Absolute Basophils 0.0 07/18/19 06:00: Sodium 139, Plasma Sodium 139, Potassium 3.4, Chloride 105, Carbon Dioxide 28.0, Anion Gap 9.4, BUN 68 H, Creatinine 2.55 H D, Est GFR (Non- Af Amer) 28 L D, BUN/Creatinine Ratio 26.7 H, Random Glucose 90, Calcium 8.8, Calcium Adj for Albumin 10.0, Total Bilirubin 0.5, AST 12, ALT 6 L, Alkaline Phosphatase 29 L, Total Protein 4.9 L, Albumin 2.1 L Discharge Location: Home Disposition: Home self-care Condition: Stable Discharge Activity: Activity as tolerated Discharge Diet: Consistent carbs Referrals: Jitendra Mcpherson MD [Primary Care Provider] - Prescriptions (Any new or edited meds): traMADol HCL [Ultram] 50 mg PO DAILY PRN #5 tab PRN Reason: Pain Transmission Status: Received by [facility] Complete Home Medications List: Complete Home Medication List: Budesonide/Formoterol Fumarate [Symbicort 80-4.5 Mcg Inhaler] 2 puff IH BID 05/26/14 metFORMIN HCL [Glucophage] 1,000 mg PO BIDWM 05/26/14 albuterol sulfate 90 mcg/actuation aerosol inhaler 1 puff IH Q4H PRN g 12/12/17 lamotrigine 150 mg tablet 150 mg PO DAILY #90 tab 01/22/18 Losartan Potassium [Cozaar] 50 mg PO DAILY 12/31/18 Atorvastatin Calcium 10 mg PO DAILY 07/17/19 Ferrous Sulfate 325 mg PO TID 07/17/19 Gabapentin 800 mg PO TID 07/17/19 Glucagon HCl [Glucagon Emergency Kit] 1 mg IJ ONCE PRN 07/17/19 Hydrochlorothiazide [Hydrodiuril] 25 mg PO DAILY 07/17/19 Pantoprazole Sodium [Protonix] 40 mg PO BID 07/17/19 Polyethylene Glycol 3350 [Miralax] 17 gm PO DAILY 07/17/19 Propranolol HCl [Inderal] 20 mg PO BID PRN 07/17/19 Sucralfate [Carafate] 1 gm PO QID 07/17/19 Fluticasone Propion/Salmeterol [Advair 250-50 Diskus] 1 puff INHALATION BID disk.w.dev 07/18/19 traMADol HCL [Ultram] 50 mg PO DAILY PRN #5 tab 07/18/19 Amb Orders for Discharge: Basic Metabolic Panel Time Frame: 1 Week, Facility: [facility], Location: Laboratory CBC Time Frame: 1 Week, Facility: [facility], Location: Laboratory
[2019-07-18 14:04] VITALS: BP 131/69
[2019-07-18] MEDS ORDERED: FLUTICASONE PROPION/SALMETEROL 14 PUFF DISK.W.DEV IH SCH (21:00)
[2019-07-18] MEDS ORDERED: ROSUVASTATIN CALCIUM 10 MG TABLET PO SCH (21:00)
== END 2019-07-18 14:20 | disposition home or self-care (01) ==
LOC: ER 03:46 → MS 03:46
PROVIDERS: ADMIT Internal Medicine; ATTEND Internal Medicine
DX: N17.9 Acute kidney failure, unspecified; J44.9 Chronic obstructive pulmonary disease, unspecified; I10 Essential (primary) hypertension; I48.91 Unspecified atrial fibrillation; Z87.891 Personal history of nicotine dependence; D62 Acute posthemorrhagic anemia; K27.0 Acute peptic ulcer, site unspecified, with hemorrhage; E83.52 Hypercalcemia
CPT/HCPCS: 36415; 74019; 74020; 74176; 80053; 81001; 82150; 83605; 83690; 84100; 85014; 85018; 85025; 86850; 93005; 96365; 96366; 96375; 99285; G0378; J2405; P9016; Q9963